=== PATIENT | female | born 2005 | race Caucasian/White ===

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

== ENCOUNTER → 2025-02-07 23:59 | Outpatient (BNV) | payer OTHER, SELFPAY ==
--- NOTE | 2025-02-09 09:54 | A.OFFVIS_ITS ---
Intake Visit Reasons: follow up Allergies No Known Allergies (No Known Allergies*) Allergy (Verified 08/23/22 01:34) HPI Comments Details: student coming needing verification of (test was quite positive!) but she is chatty and we did her orientation at the same time. states did home pegnancy test and it was positive - USN done 3 weeks ago. PCP [facility] (no pcp yet bc aged out of pediatrics) getting ob care there as well but disatisfied by their communication...she states she is high risk (bicornate? uterus it's heart shaped ) so suggested that she connect with [facility] - she is thinking about this. meanwhile she is very nauseous and [facility] anything [facility]. she will call them back again but we reviewed natural remedies in the meantime. discussed unisom but see insomnia issue below and also not recommending anything that her midwives are not aware of . she vomits a lot - the only thing she can keep down is strawberries, bananas and yogurt. PMH: pituitary tumor they are just watching this - it has not grown. moon is monitoring w/ MRI's anxiety/social anxiety/depression and anger issues (was on medis - doesn't know the name but nothing helped - she was 9-12 years old. she is unable to sleep - prior to - she doens't ever sleep - dad has same issue and brother. nothing works - tried melatonin, benadryl and other things benadryl made her drowsy but not sleep. she smokes cannabis every night (2 times a day) this helps w/ anxiety and sleep some. she has told her Test Desk Trouble Locator and was told it 'was ok' during - she is trying to cut down. G3 M3 P 0 EDC august No mental health diagnosis (no bipolar/kleber to explain sleep issue), sleep study was done not resulted. 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 Anxiety associated with depression Adolescent , incidental Social History Alcohol intake: never Smoked in Last 30 Days: No Use of substances other than those prescribed or required for medical reasons: Yes Substance Use Type: Marijuana Substance Use Type Other:: Eats edibles for sleep Substance Use Frequency: Occasionally Advance Directives: No Advance Directives Information Provided: Yes Patient : No Review of Systems Const Details: Counseling visit: All systems reviewed & are unremarkable except as noted in HPI and below Reports as per HPI Resp Reports as per HPI GI Reports as per HPI Musc Reports as per HPI Neuro Reports as per HPI Psych Reports as per HPI Physical Exam Const Other: mostly seems comfortable - slight anxiety appartent but not terrible General: cooperative, healthy appearing and no acute distress Nutritional Appearance: well nourished Orientation/consciousness: oriented to person Limitations: no limitations HEENT Other: wnl Eyes Other: wnl Chest Other: easy breathing Resp Effort & Inspection: normal respiratory effort and able to speak in complete sentences Skin Other: normal in appearance Neuro General: oriented to person Psych Other: see HPI Appearance: grossly normal and well kempt Mental Status: mental status grossly normal Speech and movement: Clear speech present Affect: normal affect Attitude: cooperative Thought process: Normal thought process present Thought content: Normal thought content present Insight: Good insight present (Psych) Judgement: Good judgement present (Psych) Assessment & Plan Assessment & Plan (1) Irregular menses: Code(s): N92.6 - Irregular menstruation, unspecified Category: Medical (2) Counseling and coordination of care: Code(s): Z71.89 - Other specified counseling Category: Medical (3) Adolescent , incidental: Code(s): Z33.1 - state, incidental Category: Medical (4) Anxiety associated with depression: Code(s): F41.8 - Other specified anxiety disorders Category: Medical (5) Insomnia disorder: Code(s): G47.00 - Insomnia, unspecified Category: Medical (6) Cannabis use with anxiety disorder: Code(s): F12.980 - Cannabis use, unspecified with anxiety disorder Category: Medical (7) Bicornate uterus complicating : Code(s): O34.00 - Maternal care for unspecified congenital malformation of uterus, unspecified trimester; Q51.3 - Bicornate uterus Category: Medical Plan coordinating care w/ her onsite counselor to help student get referrals - she currently is not interested in therapy but we are connecting her w/ texting support service and will monitor her well-being while a student here. she tried to call [facility] for care but didn't like their interveniton so will go to [facility] for care. counselor will help her w/ this - discussed w/ student again Orders: Orders AMB HCG Urine Test Today N92.6 - Irregular menstruation, unspecified, Z32.01 - Encounter for test, result positive Coding Level of Care Code New Pt Level 5 (06490) Diagnoses Irregular menses N92.6 Counseling and coordination of care Z71.89 Adolescent , incidental Z33.1 Anxiety associated with depression F41.8 Insomnia disorder G47.00 Cannabis use with anxiety disorder F12.980 Bicornate uterus complicating O34.00; Q51.3 Additional Codes CRAFFT Assessment Charge - Crafft: CRAFFT 09856 ([id number]) PHQ-9 - 16335 - PHQ-9 Billing: Yes ([id number]) MEGHAN-7 Assessment Billing - MEGHAN-7 Assessment Tool: MEGHAN-7 Assessment 72239 ([id number]) Time Spent (min) 60 Comment over 60 min counseling and coord care CRAFFT Screening Tool PART A: In the PAST 12 MONTHS, did you: Drink any alcohol (more than few sips)? (Do not count sips of alcohol taken during family or holiness events.): No Smoke any marijuana or hashish?: Yes Use anything else to get high? (includes illegal drugs, over the counter/prescription drugs, or things that you sniff/perez?): No PART B: If answered YES to ANY above: Have you ever been in a CAR driven by someone (including yourself) who was high or had been using alcohol or drugs?: No Do you ever use alcohol or drugs to RELAX, feel better about yourself, or fit in?: No Do you ever use alcohol or drugs while you are by yourself, or ALONE?: No Do you ever FORGET things while using alcohol or drugs?: No Do your FAMILY or FRIENDS ever tell you that you should cut down on your drinking or drug use?: No Have you ever gotten into TROUBLE while you were using alcohol or drugs?: No details: helps her to sleep CRAFFT Assessment Charge Crafft: CRAFFT 49359 PHQ-9 Over the last 2 weeks, how often have you been bothered by any of the following problems? 1. Little interest or pleasure in doing things: more than half the days 2. Feeling down, depressed, or hopeless: more than half the days 3. Trouble falling or staying asleep, or sleeping too much: nearly every day 4. Feeling tired or having little energy: nearly every day 5. Poor appetite or overeating: nearly every day 6. Feeling bad about yourself - or that you are a failure or have let yourself or your family down: more than half the days 7. Trouble concentrating on things, such as reading the newspaper or watching television: more than half the days 8. Moving or speaking so slowly that other people could have noticed. Or the opposite - being so fidgety or restless that you have been moving around a lot more than usual: more than half the days 9. Thoughts that you would be better off or of hurting yourself in some way: not at all Total score: 19 Depression Screening Interpretation: Positive Depression Screening Done: Yes 92604 - PHQ-9 Billing: Yes Source: Developed by Drs. Robby Del Castillo, Sissy Long, Poncho Hyman and colleagues, with an educational chrissy from [employer]. MEGHAN-7 AMB Questionnaire MEGHAN-7 Feeling nervous, anxious, or on edge: 2 = More than half the days Not being able to stop or control worryin = Nearly every day Worrying too much about different things: 3 = Nearly every day Trouble relaxin = Nearly every day Being so restless that it is hard to sit still: 2 = More than half the days Becoming easily annoyed or irritable: 3 = Nearly every day Feeling afraid as if something awful might happen: 3 = Nearly every day Total MEGHAN-7 score (0-4 normal; 5-9 mild; 10-14 moderate; 15-21 severe): 19 Source: Developed by Drs. Robby Del Castillo, Poncho Lambert and colleagues, with an educational chrissy from [employer]. MEGHAN-7 Assessment Billing MEGHAN-7 Assessment Tool: MEGHAN-7 Assessment 11478
== END ==
PROVIDERS: PCP Student in an Organized Health Care Education/Training Program; Visit Provider Nurse Practitioner Family
DX: N92.6 Irregular menstruation, unspecified (principal); Z71.89 Other specified counseling; Z33.1 Pregnant state, incidental; F41.8 Other specified anxiety disorders; G47.00 Insomnia, unspecified; F12.980 Cannabis use, unspecified with anxiety disorder; O34.00 Maternal care for unspecified congenital malformation of uterus, unspecified trimester; Q51.3 Bicornate uterus
CPT/HCPCS: 96127; 96160; 99205

== ENCOUNTER 2025-02-14 15:38 | Emergency (ER) | payer OTHER, SELFPAY ==
--- OUTSIDE RECORDS SUMMARY | 2025-02-13 14:50 | XMS_ITS | Continuity of Care Document ---
Author Organization [facility] ter Address [address] [place] [address]- Care Team Providers Care Biztalk Software Developer Name Role Phone Not on Staff, PCP Primary Care Physician Unavail able Encounter [facility] Date(s): 02/13/25 - 02/13/25 [facility] [address] [place] [id number] Encounter Diagnosis Complete spontaneous complicated by genital tract and pelvic infection (Final) - 02/13/25 Discharge Disposition: A-D/C Home Attending Physician: Delmy Mccord MD Admitting Physician: Delmy Mccord MD Referring Physician: Not on Staff, Referring MD Encounter Type: Disch ES Allergies, Adverse Reactions, Alerts No Known Allergies Immunizations Given and Recorded Vaccine Date Status Refusal Reason Hepatitis B Vaccine (old term) 05 Given Medications Fluoxetine By Mouth, 0 Refills, Maintenance, 08/09/22 3:23:00 PM EST, Partial fill upon patient request if the prescription is for a schedule II opioid drug. Start Date: 08/09/22 Status: Ordered Repeat number: 1 Melatonin Daily at bedtime, 0 Refills, Maintenance, 08/09/22 3:23:00 PM EST, Partial fill upon patient requestif the prescription is for a schedule II opioid drug. Start Date: 08/09/22 Status: Ordered Repeat number: 1 Omeprazole By Mouth, Daily, 0 Refills, Maintenance, 08/09/22 3:23:00 PM EST, Partial fill upon patient request if the prescription is for a schedule II opioid drug. Start Date: 08/09/22 Status: Ordered Repeat number: 1 Results Radiology Reports * Exam Date Time Procedure Performing Provider Status 02/13/25 1:21 PM US Pelvic Doppler Comp Au th (Verified) Notes: (US Pelvic Doppler Comp) Reason For Exam: Pelvic Pain;Other: RESULT: US Pelvic Doppler Comp US Transabd 1st Trimester Only, US Uterus Transvaginal, US Pelvic Doppler Comp Refer to EMR; Hx of Present Illness: Pt states she is 10 weeks and started experiencing vaginal bleeding this AM. Pt states it is heavy for me. Pt states she has had abd cramping x 2 weeks. Pt is in process of being transferred to but currently not seen. Denies dizziness; Reason: Other:; Pelvic Pain; Clinical Question(s): Other:; Retained Products of Conception; Order Comment: US Pelv. Beta hCG 12,511 The 3, para 0. COMPARISON: Negative 3:00 AM, same day (ER only) TECHNIQUE: Transabdominal and transvaginal pelvic ultrasound with grayscale, color Doppler, and spectral Doppler analysis. FINDINGS: Last menstrual period (LMP): 09/15/2024 per patient. UTERUS AND GESTATIONAL STRUCTURES: A gestational sac is present measuring 2.5 x 2.2 x 4.3 cm (mean diameter 3.0 cm, 7 weeks 6 days). There appears to be an additional amnion within the gestational sac. No well-defined yolk sac is seen. Along the amniotic membrane, and protruding inward, there is a nonspecific 1.8 x 3.8 mm soft tissue structure (cine image 621 of 1665). Uterus: 8.6 x 6.0 x 7.5 cm, volume 206 cc. No masses. No abnormalities of the cervix. RIGHT OVARY: Size: 2.8 x 2.6 x 1.8 cm, volume 6.6 cc. Morphology: Normal echotexture. No pathologic cysts or mass. Normal arterial and venous waveforms. LEFT OVARY: Size: 3.6 x 1.5 x 1.7 cm, volume of 4.7 cc. Morphology: Normal echotexture. No pathologic cysts or mass. Normal arterial and venous waveforms. FREE FLUID: None. IMPRESSION: Within the uterine cavity, there is a gestational sac with mean diameter of 3.0 cm with an amnionicmembrane, but no clearly recognizable yolk sac or pole. There is a nonspecific soft tissue nodular structure along the margin of the amnion. The findings are consistent with intrauterine products of conception, but do not appear normal, and are suspicious for failure. Both ovaries are normal, with no evidence of torsion, and no adnexal mass was seen. WSN: [id number] Ordering Physician: Delmy Mccord Dictated By: Atilio Brown MD Dictated Date/Time: 02/13/25 1:40 pm Reviewed By: Atilio Brown MD Signed By: Atilio Brown MD Signed Date/Time: 02/13/25 1:40 pm Transcribed By: GORAN Transcribed Date/Time: 02/13/25 1:39 pm * Exam Date Time Procedure Performing Provider Status 02/13/25 1:21 PM US Uterus Transvaginal Auth (Verified) Notes: (US Uterus Transvaginal) Reason For Exam: Pelvic Pain;Other: RESULT: US Uterus Transvaginal US Transabd 1st Trimester Only, US Uterus Transvaginal, US Pelvic Doppler Comp Refer to EMR; Hx of Present Illness: Pt states she is 10 weeks and started experiencing vaginal bleeding this AM. Pt states it is heavy for me. Pt states she has had abd cramping x 2 weeks. Pt is in process of being transferred to but currently not seen. Denies dizziness; Reason: Other:; Pelvic Pain; Clinical Question(s): Other:; Retained Products of Conception; Order Comment: US Pelv. Beta hCG 12,511 The 3, para 0. COMPARISON: Negative 3:00 AM, same day (ER only) TECHNIQUE: Transabdominal and transvaginal pelvic ultrasound with grayscale, color Doppler, and spectral Doppler analysis. FINDINGS: Last menstrual period (LMP): 09/15/2024 per patient. UTERUS AND GESTATIONAL STRUCTURES: A gestational sac is present measuring 2.5 x 2.2 x 4.3 cm (mean diameter 3.0 cm, 7 weeks 6 days). There appears to be an additional amnion within the gestational sac. No well-defined yolk sac is seen. Along the amniotic membrane, and protruding inward, there is a nonspecific 1.8 x 3.8 mm soft tissue structure (cine image 621 of 1667). Uterus: 8.6 x 6.0 x 7.5 cm, volume 206 cc. No masses. No abnormalities of the cervix. RIGHT OVARY: Size: 2.8 x 2.6 x 1.8 cm, volume 6.6 cc. Morphology: Normal echotexture. No pathologic cysts or mass. Normal arterial and venous waveforms. LEFT OVARY: Size: 3.6 x 1.5 x 1.7 cm, volume of 4.7 cc. Morphology: Normal echotexture. No pathologic cysts or mass. Normal arterial and venous waveforms. FREE FLUID: None. IMPRESSION: Within the uterine cavity, there is a gestational sac with mean diameter of 3.0 cm with an amnionicmembrane, but no clearly recognizable yolk sac or pole. There is a nonspecific soft tissue nodular structure along the margin of the amnion. The findings are consistent with intrauterine products of conception, but do not appear normal, and are suspicious for failure. Both ovaries are normal, with no evidence of torsion, and no adnexal mass was seen. WSN: [id number] Ordering Physician: Delmy Mccord Dictated By: Atilio Brown MD Dictated Date/Time: 02/13/25 1:40 pm Reviewed By: Atilio Brown MD Signed By: Atilio Brown MD Signed Date/Time: 02/13/25 1:40 pm Transcribed By: GORAN Transcribed Date/Time: 02/13/25 1:39 pm * Exam Date Time Procedure Performing Provider Status 02/13/25 1:21 PM US Transabd 1st Trimester On ly Modified Notes: (US Transabd 1st Trimester Only) Reason For Exam: Pelvic Pain;Other: RESULT: US Transabd 1st Trimester Only US Transabd 1st Trimester Only, US Uterus Transvaginal, US Pelvic Doppler Comp Refer to EMR; Hx of Present Illness: Pt states she is 10 weeks and started experiencing vaginal bleeding this AM. Pt states it is heavy for me. Pt states she has had abd cramping x 2 weeks. Pt is in process of being transferred to but currently not seen. Denies dizziness; Reason: Other:; Pelvic Pain; Clinical Question(s): Other:; Retained Products of Conception; Order Comment: US Pelv. Beta hCG 12,511 The 3, para 0. COMPARISON: Negative 3:00 AM, same day (ER only) TECHNIQUE: Transabdominal and transvaginal pelvic ultrasound with grayscale, color Doppler, and spectral Doppler analysis. FINDINGS: Last menstrual period (LMP): 09/15/2024 per patient. UTERUS AND GESTATIONAL STRUCTURES: A gestational sac is present measuring 2.5 x 2.2 x 4.3 cm (mean diameter 3.0 cm, 7 weeks 6 days). There appears to be an additional amnion within the gestational sac. No well-defined yolk sac is seen. Along the amniotic membrane, and protruding inward, there is a nonspecific 1.8 x 3.8 mm soft tissue structure (cine image 621 of 1665). Uterus: 8.6 x 6.0 x 7.5 cm, volume 206 cc. No masses. No abnormalities of the cervix. RIGHT OVARY: Size: 2.8 x 2.6 x 1.8 cm, volume 6.6 cc. Morphology: Normal echotexture. No pathologic cysts or mass. Normal arterial and venous waveforms. LEFT OVARY: Size: 3.6 x 1.5 x 1.7 cm, volume of 4.7 cc. Morphology: Normal echotexture. No pathologic cysts or mass. Normal arterial and venous waveforms. FREE FLUID: None. IMPRESSION: Within the uterine cavity, there is a gestational sac with mean diameter of 3.0 cm with an amnionicmembrane, but no clearly recognizable yolk sac or pole. There is a nonspecific soft tissue nodular structure along the margin of the amnion. The findings are consistent with intrauterine products of conception, but do not appear normal, and are suspicious for failure. Both ovaries are normal, with no evidence of torsion, and no adnexal mass was seen. WSN: [id number] Ordering Physician: Delmy Mccord Dictated By: Atilio Brown MD Dictated Date/Time: 02/13/25 1:40 pm Reviewed By: Atilio Brown MD Signed By: Atilio Brown MD Signed Date/Time: 02/13/25 1:40 pm Transcribed By: GORAN Transcribed Date/Time: 02/13/25 1:39 pm Note * Delmy Mccord MD: PERFORM Event Display: Patient Education Leaflets Authored Date: [id number] Completed Spontaneous Miscarriage ?? [id number] Completed Spontaneous Miscarriage Completed miscarriage means that the embryo or fetus, placenta, and other tissues are passed out ofthe uterus with bleeding. It???s important to know that you did not cause this to happen. Miscarriage is very common. About 1or 2 out of every [address] Miscarriage usually takes place in the first 10 weeks after conception. It may happen before you know you are . It may happen for many reasons. Often the cause is not known. Miscarriage is not your fault. It didn???t happen because you did something wrong. Sex or exercise does not cause a miscarriage. These activities are safe unless your healthcare provider tells you tostop. Even a minor fall won???t cause a miscarriage. It appears that your miscarriage is complete. This means that all tissue from the should have passed out of your uterus. If some of the tissue??is still in your uterus, you will have more cramping and bleeding.??The bleeding can be light spotting or like a period. It's usually not heavy. You may also pass some tissue. After you have recovered, you should be able to get again. Before trying, talk with your healthcare provider. Home care After you go home: ??? You may not feel well for a few days. Your body is going through changes. You will have mood swings. ??? You may have some cramping and bleeding, but it shouldn???t be severe. ??? When you are ready, you can start to go back to your normal routine. Until the bleeding stops fully, to prevent infection: ??? Don???t have sex until your healthcare provider says it???s OK. ??? Don???t use tampons. Use pads instead. ??? Don???t use douche. Having a miscarriage is stressful and upsetting. It's natural to feel sadness or grief. Partners grieve, too. It may help to talk about your feelings with family, friends, a counselor, or customer support advisor. ?? Follow-up care See your healthcare provider in 1 to 2 weeks for a checkup. If you had an ultrasound, a radiologistwill look at it. You will be told of any results that may affect your care. If you have cramping and bleeding for more than a few days, call your healthcare provider. You willneed another exam. Your provider might need to take out the tissue with surgery. This is to preventinfection in your uterus. Or you may be given medicine to take at home. This will help the rest of the tissue come out of your body. ?? Call 911 Call 911 if you have any of these: ??? Severe pain and very heavy bleeding ??? Severe lightheadedness, passing out, or fainting ??? Fast heart rate ??? Trouble breathing ??? Confusion ??? Trouble waking up ?? When to get medical care Call your healthcare provider right away??if you have any of these: ??? Heavy bleeding that soaks 1pad an hour over 3 hours ??? Bleeding that doesn???t stop after 10 days ??? Fluid from your vagina that smells bad ??? Fever of 100.4??F (38??C) or higher ??? Pain in your lower belly (abdomen) that gets worse ??? Weakness or dizziness ?? Last Reviewed Date: 2024 00:00:00 ?? [id number] [employer]. All rights reserved. This information is not intended as a substitute for professional medical care. Always follow your healthcare professional's instructions. ?? Patient Care team information Care Team Personnel Name: Not on Staff, PCP Position: [facility] Physician (General Medicine) Member Role: PCP Care Team Related Persons Name: KERLINE BONNER Name: HENRIK DALTON Insurance Providers Guarantor name: [facility] [employer] Plan Information #: 1 Payer: [employer] Payer Identifier: LIN Member Number: [id number] Group Number: [id number] Subscriber Identifier: [id number] Relationship to Subscriber: self Coverage Type: NA Coverage Verification Date: Telecom: NA Address:
[2025-02-14] VITALS (7 sets, daily range): BP systolic 101–125; BP diastolic 62–75; PULSE 88–103; RESP 14–20; TEMP 36.6–37.1; O2SAT 97–99; BMI 34.7
--- NOTE | ~2025-02-14 | US_ITS ---
CLINICAL HISTORY: , vag bleeding, ectopic? US OB 1st trimester transabdominal and transvaginal Comparison: None provided Findings: Transabdominal imaging performed for overall anatomy. Transvaginal imaging performed for additional detail. The uterus measures 8.7 cm in length on transabdominal imaging and 7.7 cm in length on transvaginal imaging. No intrauterine gestational sac, yolk sac, pole, or heart tones are detected on this examination. The endometrium appears thickened, measuring 23.8 mm in thickness on transvaginal imaging. There is flow at the endometrium on color Doppler imaging. There is some heterogeneity of the endometrium. The right ovary measures 2.8 x 2.5 x 1.7 cm on transvaginal imaging and the left ovary measures 3.3 x 1.0 x 1.6 cm on transvaginal imaging. Flow present at the right ovary on color Doppler imaging. Limited color Doppler images of the left ovary were a 1.5 cm simple appearing anechoic cyst with posterior acoustic enhancement is present at the right adnexa. Possible trace free fluid at the cul-de-sac. IMPRESSION: 1. No intrauterine gestational sac, pole, or heart tones are detected on this examination. There is heterogeneous thickening of the endometrium up to 23.8 mm on transvaginal imaging with flow at the endometrium on color Doppler imaging. These findings are nonspecific and may be related to retained products of conception or gestational trophoblastic disease. Less likely consider an endometrial tumor or polyp given the patient's age. Recommend obstetric consultation. This document has been electronically signed by: Keaton Reyes MD on 02/14/2025 21:14:49
--- NOTE | 2025-02-14 15:54 | ED_ITS ---
HPI - General Adult General Chief complaint: Vaginal Bleeding Stated complaint: vaginal bleeding,clots ,miscarriage 02/13 Time Seen by Provider: 02/14/25 18:17 Source: patient Limitations: no limitations History of Present Illness ED Provider: Stacy Hall PA-C HPI narrative: 19-year-old female presents with vaginal bleeding. Patient states as of yesterday she should be approximately 10 weeks . The patient's bleeding began yesterday, she was soaking through a pad every 15 minutes, passing large clots at times. Patient states she was seen at [facility], and they told her ?you are not really ?. Patient states the bleeding has subsided to some degree, she is followed by fibreglass laminator at [facility]. Associated dizziness, nausea and abdominal cramping. Related Data Previous Rx's ?Medication ?Instructions ?Recorded ketorolac 10 mg tablet 10 mg PO Q6H PRN pain #20 ta bs 02/14/25 methocarbamol 750 mg tablet 1,500 mg (2 x 750 mg) PO B EDTIME 02/14/25 PRN pain, moderate #7 tabs Allergies Allergy/AdvReac Type Severity Reaction Status Date / Time No Known Allergies (No Known Allergy Verified 02/14/25 15:57 Allergies*) Review of Systems 2 Review of Systems: Yes all other systems are reviewed and are negative Constitutional: Constitutional: Denies fatigue and Denies fever(s) Cardiovascular: Cardiovascular: Denies chest pain and Denies dyspnea Respiratory: Respiratory: Denies dyspnea Gastrointestinal: Gastrointestinal: Reports GI cramping and Reports nausea Genitourinary: Comments: Heavy vaginal bleeding Musculoskeletal: Musculoskeletal: Reports back pain Endocrine: Endocrine: Denies fatigue PMFSH Past Medical History Attestation statement: The following information was validated with the patient. 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 Insomnia disorder Anxiety associated with depression Adolescent , incidental Social History Social History Alcohol intake: never Substance Use Type: Marijuana Physical Exam ED Vital Signs: Vital Signs - 24 hr 02/14/25 15:55 02/14/25 17:11 02/14/25 19:15 Temperature 98.0 F 97.8 F 98.4 F Pulse Rate 103 H 99 89 Respiratory Rate 18 20 14 Blood Pressure 119/75 109/64 106/70 Pulse Oximetry 97 97 99 Oxygen Delivery Method Room Air Room Air Room Air 02/14/25 20:34 02/14/25 20:39 02/14/25 22:03 Temperature 98.7 F Pulse Rate 103 H 88 92 Respiratory Rate 18 18 14 Blood Pressure 121/73 125/64 101/62 Pulse Oximetry 99 99 99 Oxygen Delivery Method Room Air Room Air Room Air BMI result Body Mass Index 34.7 Const Other: Alert Orientation/consciousness: patient oriented x3 Resp Effort & Inspection: normal respiratory effort Cardio Other: Normal peripheral perfusion GI Other: Abdomen is soft, nontender no guarding Other: Large clot burden noted in vaginal canal, once it was removed, there was no active bleeding per os Skin Other: Warm dry no rash Neuro General: patient oriented x3, gait normal, no focal motor deficits and CN's II- XI intact bilaterally Psych Other: Cooperative Course Course Course Narrative: This is a rapid medical exam performed by Yovanny Mckeon NP: Additional HPI, ROS, PE not included below will be deferred to primary provider. Patient is a 19-year-old female with history of irregular menses, cannabis use disorder, anxiety and depression, bicornate uterus presenting to the ED with complaint of vaginal bleeding since 6am yesterday. Seen at [facility], told she was having a miscarriage. After going home, bleeding worsened. Went through 4 large pads within an hour. Estimated 10 wks gestation. Family states she passed a blood clot larger than one dollar. Dizziness, nausea, vomiting, lower back pain, abdominal cramping. Upon review of [facility] records, H&H yesterday was 13.6/42.0 Plan: labs, UA Consultations Consultation #1: Moraima..... Dr. Doyle...... She states given the patient is stable, there were not be cause for emergent transfer, they will reach out to the patient tomorrow morning to schedule an appointment to discuss the need for D and C Time: 22:06 Medications Administered Discontinued Medications Generic Name Dose Route Start Last Admin Trade Name Freq PRN Reason Stop Dose Admin Acetaminophen 975 mg 02/14/25 15:57 02/14/25 16:03 Acetaminophen 325 Mg Tablet PO 02/14/25 15:58 975 mg ONCE ONE Administration Ketorolac Tromethamine 15 mg 02/14/25 19:12 02/14/25 20:35 Ketorolac Tromethamine 15 Mg/Ml Vial IM 02/14/25 19:13 15 mg ONCE ONE Administration Methocarbamol 1,500 mg 02/14/25 22:32 02/14/25 23:00 Methocarbamol 750 Mg Tablet PO 02/14/25 22:33 1,500 mg ONCE ONE Administration Medical Decision Making Medical Decision Making MDM Narrative: 19-year-old female presents with vaginal bleeding. Patient states as of yesterday she should be approximately 10 weeks . The patient's bleeding began yesterday, she was soaking through a pad every 15 minutes, passing large clots at times. Patient states she was seen at [facility], and they told her ?you are not really ?. Patient states the bleeding has subsided to some degree, she is followed by fibreglass laminator at [facility]. Associated dizziness, nausea and abdominal cramping. Problem: Early History: Per patient I have considered the following differential diagnoses: Ectopic, threatened , retained products of conception Plan: In addition to screening labs, type and screen with Rh factor we will be obtained, transvaginal ultrasound is in process. I will attempt to obtain records from [facility]. I will then in turn reach out to her provider at [facility], she may require transfer. I am most concerned for ectopic at this point, she was told at [facility] that she is not truly , I am not sure how to decipher that. Her for CBC is complete, I am repeating her blood counts I have independently reviewed the following tests: Labs: Initial H&H 13.3 and 40.6, repeat 12.5 and 38, no leukocytosis, no electrolyte abnormality, serum quant 8577 Transvaginal ultrasound:IMPRESSION: 1. No intrauterine gestational sac, pole, or heart tones are detected on this examination. There is heterogeneous thickening of the endometrium up to 23.8 mm on transvaginal imaging with flow at the endometrium on color Doppler imaging. These findings are nonspecific and may be related to retained products of conception or gestational trophoblastic disease. Less likely consider an endometrial tumor or polyp given the patient's age. Recommend obstetric consultation. Lab Data 02/14/25 19:25 07/28/25 16:16 Labs: Lab Results 02/14/25 02/14/25 Range/Units 16:16 19:25 WBC 10.7 (4.8-10.8) X10*3/uL RBC 4.93 (4.20-5.50) X10*6/uL Hgb 13.3 12.5 (12.0-16.0) g/dl Hct 40.6 38.0 (37.0-47.0) % MCV 82.4 (80.0-98.0) fL MCH 27.0 (27.0-33.0) pg MCHC 32.8 (31.0-35.0) g/dl RDW 13.8 (11.0-16.0) % Plt Count 448 H (160-400) X10*3/uL MPV 10.1 (9.4-12.3) fL Immature Gran % (Auto) 0.2 (0.0-0.4) % Neut % (Auto) 75.1 H (45-73) % Lymph % (Auto) 19.7 L (20-40) % [place] % (Auto) 4.1 (2-11) % Eos % (Auto) 0.6 (0-4) % Baso % (Auto) 0.3 (0-2) % Lymph # (Auto) 2.1 (1.2-4.9) X10*3/uL [place] # (Auto) 0.4 (0.1-1.2) X10*3/uL Eos # (Auto) 0.1 (0.0-0.4) X10*3/uL Baso # (Auto) 0.0 (0.0-0.2) X10*3/uL Abs Immat Gran (auto) 0.02 (0.00-0.03) X10*3/uL Absolute Neuts (auto) 8.0 (2.0-8.3) x10*3/uL Absolute Nucleated RBC 0.000 (0.0-0.012) X10*3/uL Nucleated RBC % (auto) 0.0 (0.0-0.2) /100WBC PT 12.2 (10.9-12.4) SEC INR 1.1 (0.9-1.1) Sodium 140 (135-145) mmol/L Potassium 4.1 (3.3-5.1) mmol/L Chloride 108 (96-108) mmol/L Carbon Dioxide 23 (22-29) mmol/L Anion Gap 13 (12-20) BUN 7 L (9-16) mg/dL Creatinine 0.59 (0.5-1.4) mg/dL Estim Creat Clear Calc 168.1 Estimated GFR > 60 Random Glucose 108 (60-115) mg/dL Calcium 9.3 (8.4-10.2) mg/dL Total Bilirubin 0.4 (0.0-1.0) mg/dL AST 14 (5-31) U/L ALT 11 (0-31) U/L Alkaline Phosphatase 77 (39-117) U/L Total Protein 6.9 (6.5-8.0) g/dL Albumin 4.1 (3.5-5.0) g/dL Beta HCG, Quant 8577 mIU/mL Blood Type A Positive Antibody Screen NEGATIVE Discharge Plan Discharge Clinical Impression: Retained products of conception after miscarriage Patient Disposition: Home, Self-Care Additional Instructions: You were found to have retained products of conception, this is essentially an incomplete miscarriage. Your fibreglass laminator from [facility] will be contacting you tomorrow, you can expect their call, make sure you speak with them. They will arrange for you to be seen in the office, you will have further discussion about the next steps in this process. Return precaution for onset of heavy vaginal bleeding that will not stop, if this occurs, seek medical attention. Take the ketorolac as directed, take it with food, this will help with the bleeding and pain. Use the methocarbamol as needed for further discomfort this is a muscle relaxant. It will cause drowsiness, do not drive or operate machinery while taking this medication. Prescriptions: New ketorolac 10 mg tablet 10 mg PO Q6H PRN (Reason: pain) Qty: 20 0RF Rx Instructions: maximum total duration of 5 days from all oral, intranasal, or parenteral formulations. The patient received an intramuscular dose of Toradol here in the emergency room. methocarbamol 750 mg tablet 1,500 mg PO BEDTIME PRN (Reason: pain, moderate) Qty: 7 0RF Interventions: ED Discharge Assessment Last Done: 02/14/25 23:08 Discharge Date/Time: 02/14/25 23:08 Print Language: Georgian
[2025-02-14 16:21] LABS: MANUAL DIFF FLAG NO
[2025-02-14 16:22] LABS: Hematocrit 40.6 % (37.0-47.0); Hemoglobin 13.3 g/dl (12.0-16.0); Imm Gran Abs Auto 0.02 X10*3/uL (0.00-0.03); Imm Gran Pct Auto 0.2 % (0.0-0.4); Lymphocytes Absolute Auto 2.1 X10*3/uL (1.2-4.9); Mean Corpuscular HGB Conc 32.8 g/dl (31.0-35.0); Mean Corpuscular Hemoglobin 27.0 pg (27.0-33.0); Mean Corpuscular Volume 82.4 fL (80.0-98.0); NRBC Abs Auto 0.000 X10*3/uL (0.0-0.012); NRBC Pct Auto 0.0 /100WBC (0.0-0.2); Platelet Count 448 X10*3/uL (160-400); Red Blood Count 4.93 X10*6/uL (4.20-5.50); White Blood Count 10.7 X10*3/uL (4.8-10.8)
[2025-02-14 16:28] LABS: INTERNATIONAL NORM RATIO 1.1 (0.9-1.1); Prothrombin Time 12.2 SEC (10.9-12.4)
--- OUTSIDE RECORDS SUMMARY | 2025-02-14 16:34 | XMS_ITS ---
Author Name [facility] Organization Unknown Care Team Organization Name Specialty Phone Email Start Date End Da te [facility] TITO HENDRICKS [facility] [email or web address] 03/27/[address] [facility] Jasmin Contreras Primary Care 05/28/2022 4
--- OUTSIDE RECORDS SUMMARY | 2025-02-14 16:34 | XMS_ITS | Encounter Summary ---
Author Organization [facility] Address [address] [place] [address] Care Team Providers Care Set Staff Fitter Name Role Phone Cheikh Choudhary MD Primary Care Pr ovider Reason for Visit * Reason Onset Date Comments Vaginal Bleeding - 02/14/2025 Encounter Details Date Type Department Care Team ([facility] Contact Info) Description 02/14/2025 Telephone Obstetrics and Gynecology - [address] [phone] [address] Carranza [address] [address] Vaginal Bleeding - Social History Tobacco Use Types Packs/Day Years Used Date Smoking Tobacco: Never Smokeless Tobacco: Never Alcohol Use Standard Drinks/Week Comments No 0 (1 standard drink = 0.6 oz pur e alcohol) Estimated Date of Delivery Comme nts Yes 09/11/2025 Based on Ultraso und Sex and Gender Information Value Date Recorded Sex Assigned at Not on file Legal Sex Female 2:16 PM EST Gender Identity Not on file Sexual Orientation Not on file documented as of this encounter Progress Notes * Loraine Mendoza RN - 02/14/2025 3:14 PM EDT Spoke with patient Pt went to [facility] 02/13/25 for VB and cramping.at home today and VB heavy filling 3 adult diapers in an hour and passed a large clot and has severe cramping and dizziness. Pt advised to return to [facility] or [facility] ED for treatment. Pt understands and agrees with plan of care. * Ros Rosenthal - 02/14/2025 2:53 PM EDT Pt calling, was seen at [facility] er last night and it was confirmed that she is miscarrying.Pt states she is actively bleeding very heavy and cramping. had an huge blood clot. Psl advise documented in this encounter Plan of Treatment Not on file documented as of this encounter Visit Diagnoses Not on filedocumented in this encounter Care Teams Set Staff Fitter Relationship Specialty Start Date End Date Cheikh Choudhary MD [address] [place] [id number] PCP - General 01/07/23 documented as of this encounter
[2025-02-14 16:36] LABS: Alanine Aminotransferase 11 U/L (0-31); Albumin Level 4.1 g/dL (3.5-5.0); Alkaline Phosphatase 77 U/L (39-117); Anion Gap 13 (12-20); Aspartate Amino Transferase 14 U/L (5-31); Blood Urea Nitrogen 7 mg/dL (9-16); Calcium 9.3 mg/dL (8.4-10.2); Carbon Dioxide 23 mmol/L (22-29); Chloride 108 mmol/L (96-108); Creatinine Clr Calc Pharmacy 168.1; Estimated Glomerular Filt Rate > 60; Potassium 4.1 mmol/L (3.3-5.1); Sodium 140 mmol/L (135-145); Total Protein 6.9 g/dL (6.5-8.0)
--- NOTE | 2025-02-14 18:59 | PC.NURSE ---
Patient given new pad, underwear and bedding for vaginal bleeding
[2025-02-14 19:29] LABS: Hematocrit 38.0 % (37.0-47.0); Hemoglobin 12.5 g/dl (12.0-16.0)
--- NOTE | 2025-02-14 20:34 | PC.NURSE ---
PA at bedside doinfg vaginal exam, suctioning blood clots, patient singing, tolerating well, a+ox3, mom and sister at bedside
== END 2025-02-14 23:08 | disposition home or self-care (01) ==
PROVIDERS: Physician Assistant Medical; Registered Nurse Emergency; Emergency Provider Emergency Medicine Emergency Medical Services
DX: O03.4 Incomplete spontaneous abortion without complication (principal)
CPT/HCPCS: 36415; 76801; 80053; 84702; 85014; 85018; 85025; 85610; 86850; 86900; 86901; 96372; 99284; J1885

== ENCOUNTER → 2025-02-14 19:06 | Outpatient (BNV) | payer OTHER, SELFPAY | PROVIDERS: Emergency Provider Emergency Medicine Emergency Medical Services; Visit Provider Radiology Diagnostic Radiology | DX: N93.9 Abnormal uterine and vaginal bleeding, unspecified (principal) | CPT/HCPCS: 76801; 76817 ==

== ENCOUNTER 2025-03-25 13:14 | Emergency (ER) | payer OTHER, SELFPAY ==
--- NOTE | ~2025-03-25 | US_ITS ---
EXAMINATION: US PELVIS CLINICAL INFORMATION: Cramping, bleeding, miscarriage 2 months ago. COMPARISON: February 14, 2025 TECHNIQUE: Ultrasound of the pelvis is performed using both transabdominal and transvaginal transducers along with Doppler. Transvaginal imaging is performed due to inadequate visualization transabdominally. FINDINGS: Uterus: The uterus is anteversion flexion and measures 7 x 3 x 4 cm. Volume: 51 cc. The double wall endometrial thickness is 7 mm. there is a 0.9 cm hypoechoic lesion in the anterior upper body of the uterus adjacent to the endometrium no focal calcification. Adnexa: The ovaries are identified with flow on color Doppler interrogation.. No free fluid in the cul-de-sac. Right ovary measures 3 x 2 x 2 cm. Volume: 8.4 cc. There is a 1.5 cm anechoic structure without septations or internal echoes, likely dominant follicle. Left ovary measures 4 x 2 x 2 cm. Volume: 9 cc. No solid or cystic lesion. US/US pelvic and transvaginal IMPRESSION: No retained products of conception. Endometrial stripe, 7 mm. 9 mm subserosal uterine fibroid. No ovarian torsion. Electronically signed by: Benson Everett MD 03/25/2025 03:32 PM EDT
[2025-03-25 13:36] VITALS: BP 124/65; PULSE 97; RESP 18; TEMP 36.7; O2SAT 99; BMI 34.6
--- NOTE | 2025-03-25 13:36 | ED_ITS ---
HPI - General Adult General Chief complaint: Vaginal Bleeding Stated complaint: cramping and vaginal bleeding Time Seen by Provider: 03/25/25 16:40 Source: patient and old records reviewed Mode of arrival: ambulatory Limitations: no limitations History of Present Illness ED Provider: CLARENCE LANDRUM narrative: 20 yo female with PMH of anxiety and depression, bicornuate uterus who had miscarriage around 10 weeks gestation back in January she states she was seen here on 02/14 and DC home - she completed miscarriage at home. . She notes she has felt poor for a while but more weak recently with fatigue. She started to bleed with large clots and using adult diaper x 4 per day over the past week. She came in due to worsening pain and bleeding. She is not on any OCPs. She feels tired and winded. MD complaint: vag bleeding/pain Onset (ago): week(s) (1) Location: pelvis Radiation: back Severity: moderate Quality: other (cramping) Pain Consistency: intermittent Relieving factors: none Exacerbating factors: movement Associated symptoms: shortness of breath and weakness Treatments prior to arrival: none Related Data Previous Rx's ?Medication ?Instructions ?Recorded ketorolac 10 mg tablet 10 mg PO Q6H PRN pain #20 ta bs 02/14/25 methocarbamol 750 mg tablet 1,500 mg (2 x 750 mg) PO B EDTIME 02/14/25 PRN pain, moderate #7 tabs ferrous sulfate 325 mg (65 mg 325 mg PO DAILY #30 tabs 03/25/25 iron) tablet ibuprofen 600 mg tablet 600 mg PO Q6H PRN pain #30 t abs 03/25/25 ondansetron 4 mg disintegrating 4 mg PO Q8H PRN nausea and 03/25/25 tablet vomiting #20 tabs Allergies Allergy/AdvReac Type Severity Reaction Status Date / Time No Known Allergies (No Known Allergy Verified 03/25/25 13:41 Allergies*) Review of Systems 2 Review of Systems: Constitutional : No Fever, No Chills ENT/Mouth : No sore throat, No Rhinorrhea Eyes: No Eye Pain, No Redness Cardiovascular : No Chest Pain, No SOB Respiratory : No Cough, No Sputum, No Wheezing Gastrointestinal : positive Nausea, No Vomiting, No Diarrhea, positive abdominal pain, Genitourinary : positive irregular bleeding, No Dysuria, No Urinary Frequency, positive pelvic pain Musculoskeletal : No Myalgias Skin : No rash Neuro : pos Weakness, No Headache All other systems reviewed and are negative [facility] Past Medical History Attestation statement: The following information was validated with the patient. 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 Insomnia disorder Anxiety associated with depression Adolescent , incidental Social History Social History Alcohol intake: never Smoked in Last 30 Days: No Use of substances other than those prescribed or required for medical reasons: Yes Substance Use Type: Marijuana Advance Directives: No Advance Directives Information Provided: Yes Patient : No (january 03, miscarriage february 14) Physical Exam ED Vital Signs: Vital Signs - 24 hr 03/25/25 13:36 03/25/25 17:32 Temperature 98.1 F 98.1 F Pulse Rate 97 97 Respiratory Rate 18 18 Blood Pressure 124/65 124/65 Pulse Oximetry 99 99 Oxygen Delivery Method Room Air Room Air BMI result Body Mass Index 34.6 Appearance: Alert. Oriented X3. No acute distress. Eyes: Pupils equal, round and reactive to light. ENT: Pharynx normal. Neck: Normal inspection. Neck supple. CVS: Normal heart rate and rhythm. Pulses normal. Respiratory: No respiratory distress. Breath sounds normal. Abdomen: Soft and mild lower abdominal pain no rebound, speculum exam - os closed, no clots, one scopette of blood Skin: Skin warm and dry. Normal skin color. Normal skin turgor. Extremities: No lower extremity edema. No calf ttp Neuro: Oriented X 3. No motor deficit. No sensory deficit. CN2-12 intact Course Course Course Narrative: This is a rapid medical exam performed by Yovanny Mckeon NP: Additional HPI, ROS, PE not included below will be deferred to primary provider. Patient is a 20y/o F with pmhx irregular menses, anxiety and depression, insomnia, cannabis use presenting with complaint of lower abd cramping, vaginal bleeding. Also reports sweats/chills. States the other day she went through a 38 pack of adult diapers in one day. Reports miscarriage 2 mos ago. Plan: labs, UA, u/s 03/27/2025 [id number] Miriam Sena PA-C ---> Patient is positive for BV. Attempted to call her but her number is not in service. Flagyl sent in. Certified letter generated. Medications Administered Discontinued Medications Generic Name Dose Route Start Last Admin Trade Name [place] PRN Reason Stop Dose Admin Lactated Ringer's 1,000 mls @ 999 mls/hr 03/25/25 17:18 03/25/25 17:46 Lr IV 03/25/25 18:18 999 mls/hr .Q1H1M ONE Administration Ketorolac Tromethamine 15 mg 03/25/25 17:18 03/25/25 17:46 Ketorolac Tromethamine 15 Mg/Ml Vial IVPUSH 03/25/25 17:19 15 mg ONCE ONE Administration Medical Decision Making Medical Decision Making [facility] Narrative: 20 yo female who had miscarriage around 10 weeks who notes she bled back in January she never had repeat CBC after leaving here. She has been tired and weak at times. Over the past week return of cramping and large clot she was going through 4 adult briefs a day. She admits it has slowed down. She states she is tired and weak at times. She takes no medications. She has not been able to get into her OBGYN at [place]. Differential Diagnosis Differential Diagnoses: The differential diagnosis associated with the presentation includes anemia, fibroid, doubt retained POC Admission/Observation Consideration of admission/observation: Escalation of care including admission/observation considered VS stable, EKG stable, H/H stable no bleeding here I do not feel she needs emergent work up or transfer there is no retained POC will start on Fe and ibuprofen have her call OB Friday Lab Data [facility] Lab Attestation statement: I reviewed the patient's lab results. 03/25/25 17:20 03/25/25 13:59 Labs: Lab Results 03/25/25 03/25/25 Range/Units 13:59 17:20 WBC 9.0 9.5 (4.8-10.8) X10*3/uL RBC 3.40 L D 3.31 L (4.20-5.50) X10*6/uL Hgb 8.8 L D 8.6 L (12.0-16.0) g/dl Hct 27.5 L D 26.8 L (37.0-47.0) % MCV 80.9 81.0 (80.0-98.0) fL MCH 25.9 L 26.0 L (27.0-33.0) pg MCHC 32.0 32.1 (31.0-35.0) g/dl RDW 13.4 13.4 (11.0-16.0) % Plt Count 450 H 429 H (160-400) X10*3/uL MPV 10.1 10.1 (9.4-12.3) fL Immature Gran % (Auto) 0.3 (0.0-0.4) % Neut % (Auto) 70.5 (45-73) % Lymph % (Auto) 23.6 (20-40) % Vernon % (Auto) 4.6 (2-11) % Eos % (Auto) 0.8 (0-4) % Baso % (Auto) 0.2 (0-2) % Lymph # (Auto) 2.1 (1.2-4.9) X10*3/uL Vernon # (Auto) 0.4 (0.1-1.2) X10*3/uL Eos # (Auto) 0.1 (0.0-0.4) X10*3/uL Baso # (Auto) 0.0 (0.0-0.2) X10*3/uL Abs Immat Gran (auto) 0.03 (0.00-0.03) X10*3/uL Absolute Neuts (auto) 6.3 (2.0-8.3) x10*3/uL Absolute Nucleated RBC 0.000 0.000 (0.0-0.012) X10*3/uL Nucleated RBC % (auto) 0.0 0.0 (0.0-0.2) /100WBC Sodium 141 (135-145) mmol/L Potassium 3.7 (3.3-5.1) mmol/L Chloride 112 H (96-108) mmol/L Carbon Dioxide 22 (22-29) mmol/L Anion Gap 11 L (12-20) BUN 8 L (9-16) mg/dL Creatinine 0.60 (0.5-1.4) mg/dL Estim Creat Clear Calc 163.9 Estimated GFR > 60 Random Glucose 98 (60-115) mg/dL Calcium 8.6 D (8.4-10.2) mg/dL Total Bilirubin 0.2 (0.0-1.0) mg/dL AST 13 (5-31) U/L ALT 8 (0-31) U/L Alkaline Phosphatase 76 (39-117) U/L Total Protein 6.6 (6.5-8.0) g/dL Albumin 3.9 (3.5-5.0) g/dL Beta HCG, Quant 4 mIU/mL Chlam trachomat DNA PCR NOT DETECTED (Not Detect.) N.gonorrhoeae DNA (PCR) NOT DETECTED (Not Detect.) T. vaginalis (PCR) NOT DETECTED (Not Detect) Bact vaginosis (PCR) POSITIVE A (Negative) C. krusei/glabrata (PCR) NOT DETECTED (Not Detect) Maria Ines group (PCR) NOT DETECTED (Not Detect) Independent Interpretation I performed an independent interpretation of an: EKG and Ultrasound (fibroid, no thickness, no retained POC) Interpretation: Rate: 75 Rhythm: NSR Bushnell: normal Normal P waves. Normal ASHLEY. Normal QRS complex. ST T wave : normal no JAXON qTC: 399 prior studies: no acute ischemia The study has been interpreted contemporaneously by me. . Radiology Impression Discussion of test interpretation with radiology: I have reviewed the radiologist's reading. External Record Review External record reviewed: Outpatient record Prescription Management I considered prescription management with: Pain Medication and Other Discharge Plan Discharge Clinical Impression: Vaginal bleeding, Anemia Patient Disposition: Home, Self-Care Instructions: Abnormal (Dysfunctional) Uterine Bleeding (ED), Anemia (ED) Additional Instructions: you are anemic but your values were stable on repeat exam your ultrasound shows no thickened stripe but no retained products of conceptions take motrin as needed for pain you need to call your OBGYN and follow up Friday morning please avoid any intercourse until your symptoms resolve we did send off a panel of labs that are pending which include chlamydia rest and stay hydrated Prescriptions: New ferrous sulfate 325 mg (65 mg iron) tablet 325 mg PO DAILY Qty: 30 0RF ibuprofen 600 mg tablet 600 mg PO Q6H PRN (Reason: pain) Qty: 30 0RF ondansetron 4 mg tablet,disintegrating 4 mg PO Q8H PRN (Reason: nausea and vomiting) Qty: 20 0RF No Action ketorolac 10 mg tablet 10 mg PO Q6H PRN (Reason: pain) Qty: 20 0RF Rx Instructions: maximum total duration of 5 days from all oral, intranasal, or parenteral formulations. The patient received an intramuscular dose of Toradol here in the emergency room. methocarbamol 750 mg tablet 1,500 mg PO BEDTIME PRN (Reason: pain, moderate) Qty: 7 0RF Stand Alone Forms: Work/School Release Interventions: ED Discharge Assessment Last Done: 03/25/25 18:35 Discharge Date/Time: 03/25/25 18:36 Print Language: Divehi
[2025-03-25 14:12] LABS: MANUAL DIFF FLAG NO
[2025-03-25 14:14] LABS: Hematocrit 27.5 % (37.0-47.0); Hemoglobin 8.8 g/dl (12.0-16.0); Imm Gran Abs Auto 0.03 X10*3/uL (0.00-0.03); Imm Gran Pct Auto 0.3 % (0.0-0.4); Lymphocytes Absolute Auto 2.1 X10*3/uL (1.2-4.9); Mean Corpuscular HGB Conc 32.0 g/dl (31.0-35.0); Mean Corpuscular Hemoglobin 25.9 pg (27.0-33.0); Mean Corpuscular Volume 80.9 fL (80.0-98.0); NRBC Abs Auto 0.000 X10*3/uL (0.0-0.012); NRBC Pct Auto 0.0 /100WBC (0.0-0.2); Platelet Count 450 X10*3/uL (160-400); Red Blood Count 3.40 X10*6/uL (4.20-5.50); White Blood Count 9.0 X10*3/uL (4.8-10.8)
--- OUTSIDE RECORDS SUMMARY | 2025-03-25 14:20 | XMS_ITS | Clinical Summary ---
Author Organization [facility] Address [address] [place] [address] Care Team Providers Care Green Chain Worker Name Role Phone Jasmin Contreras MISSILE MECHANIC Primary Care Provider [phone] Source Comments Please note that some or all of the patient's information could have additional privacy protections. State laws allow health care providers to render certain types of treatment to minors without parental consent. Please do not assume that this information can be shared solely by obtaining just the consent of the patient's parent/guardian. Please determine if all or part of the patient's care was rendered without parent/guardian involvement. And, if so, obtain the minor's consent prior to disclosure.[facility] Allergies No known active allergies Medications FLUoxetine (PROZAC) 20 MG capsule Take 20 mg by mouth daily Active Active Problems Problem Noted Date Diagnosed Date Other headache syndrome 09/04/2022 Pituitary microadenoma 09/04/2022 Social History Tobacco Use Types Packs/Day Years Used Date Smoking Tobacco: Never Tobacco Cessation:Counseling Given: Not Answered Other Needs Answer Date Recorded Anything else about your child you'd like help w ith? Not on file 04/04/2023 Share good news about positive changes: Not on f ile 04/04/2023 Comments Unknown Sex and Gender Information Value Date Recorded Sex Assigned at Not on file Legal Sex Female 3:34 PM EST Gender Identity Not on file Sexual Orientation Not on file Last Filed Vital Signs Vital Sign Reading Time Taken Comments Blood Pressure - - Pulse - - Temperature 36.2 C (97.1 F) 09/04/2022 2:44 PM EST Respiratory Rate - - Oxygen Saturation - - Inhaled Oxygen Concentration - - Weight 97.6 kg (215 lb 2.7 oz) 09/04/2022 2:44 P M EST Height - - Body Mass Index - - Plan of Treatment Health Maintenance Due Date Last Done Comments DTaP/TDAP/TD VACCINES (1 - Tdap) 02/29/2012 ADOLESCENT HIV SCREENING 2018 COVID-19 Vaccine (2023-2 5 season) 2024 INFLUENZA (Season Ended) 2025 NIRSEVIMAB VACCINES UNDER 8 MONTHS Aged Out No longer eligible based on patient's age to complete this topic [place] [address] [place] [address] [employer] Care Teams Green Chain Worker Relationship Specialty Start Date End Date Jasmin Contreras FNP [address] [place] [id number] PCP - General Nurse Practitioner 08/12/22
--- OUTSIDE RECORDS SUMMARY | 2025-03-25 14:20 | XMS_ITS | Encounter Summary ---
Author Organization [facility] [place] [address] Care Team Providers Care Flyer Builder Name Role Phone Cheikh Choudhary MD Primary Care Pr ovider Reason for Visit * Reason Onset Date Comments misscarriage 03/23/2025 Encounter Details Date Type Department Care Team (Late st Contact Info) Description 03/23/2025 Telephone Obstetrics and Gynecology - [address] [phone] Sonia Carranza CN [address] [place] [address] [id number] Social History Tobacco Use Types Packs/Day Years Used Date Smoking Tobacco: Never Smokeless Tobacco: Never Alcohol Use Standard Drinks/Week Comments No 0 (1 standard drink = 0.6 oz pur e alcohol) Comments No Sex and Gender Information Value Date Recorded Sex Assigned at Not on file Legal Sex Female 2:16 PM EST Gender Identity Not on file Sexual Orientation Not on file documented as of this encounter Progress Notes * Jessie Pena RN - 03/23/2025 3:35 PM EDT Patient reports she has been bleeding since her miscarriage-she reports she has been passing clots and bleeding heavily. Advised pt to go to the hospital as she is bleeding to heavily and is feeling symptomatic. Pt verbalized understanding. * Ros Rosenthal - 03/23/2025 3:27 PM EDT Pt calling concerned, states had an miscarriage back in January 2025 and has not stopped bleeding , states at times she is clotting . Pls advise documented in this encounter Plan of Treatment Not on file documented as of this encounter Visit Diagnoses Not on filedocumented in this encounter Care Teams Flyer Builder Relationship Specialty Start Date End Date Cheikh Choudhary MD [address] [place] [phone] PCP - General 01/07/23 documented as of this encounter
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
[2025-03-25 14:33] LABS: Alanine Aminotransferase 8 U/L (0-31); Albumin Level 3.9 g/dL (3.5-5.0); Alkaline Phosphatase 76 U/L (39-117); Anion Gap 11 (12-20); Aspartate Amino Transferase 13 U/L (5-31); Blood Urea Nitrogen 8 mg/dL (9-16); Calcium 8.6 mg/dL (8.4-10.2); Carbon Dioxide 22 mmol/L (22-29); Chloride 112 mmol/L (96-108); Creatinine Clr Calc Pharmacy 163.9; Estimated Glomerular Filt Rate > 60; Potassium 3.7 mmol/L (3.3-5.1); Sodium 141 mmol/L (135-145); Total Protein 6.6 g/dL (6.5-8.0)
--- NOTE | 2025-03-25 17:21 | ECG_ITS ---
Test Reason : WEAKNESS Blood Pressure : */* mmHG Vent. Rate : 75 BPM Atrial Rate : 75 BPM P-R Int : 168 ms QRS Dur : 82 ms QT Int : 358 ms P-R-T Axes : 44 57 33 degrees QTcB Int : 399 ms Normal sinus rhythm Normal ECG No previous ECGs available Referred By: Nasrin Camargo Electronically Signed By: Issa Aguilar
[2025-03-25 17:32] VITALS: BP 124/65; PULSE 97; RESP 18; TEMP 36.7; O2SAT 99
[2025-03-25] MEDS: Lactated Ringers 1,000 ML 999 ML IV (17:46)
[2025-03-25 17:53] LABS: Hematocrit 26.8 % (37.0-47.0); Hemoglobin 8.6 g/dl (12.0-16.0); Mean Corpuscular HGB Conc 32.1 g/dl (31.0-35.0); Mean Corpuscular Hemoglobin 26.0 pg (27.0-33.0); Mean Corpuscular Volume 81.0 fL (80.0-98.0); NRBC Abs Auto 0.000 X10*3/uL (0.0-0.012); NRBC Pct Auto 0.0 /100WBC (0.0-0.2); Platelet Count 429 X10*3/uL (160-400); Red Blood Count 3.31 X10*6/uL (4.20-5.50); White Blood Count 9.5 X10*3/uL (4.8-10.8)
--- NOTE | 2025-03-25 18:32 | PC.NURSE ---
Pt's fluids finished. IV DC'd. Discharge instruction, verbal and written, given to pt and support people. All questions answered. Pt verbalized intent to follow up with OBGYN and take iron supplements.
[2025-03-25 18:35] VITALS: BP 124/65; PULSE 97; RESP 18; TEMP 36.7; O2SAT 99
[2025-03-25 20:40] LABS: Bacterial Vaginosis PCR POSITIVE (Negative); Candida Group PCR NOT DETECTED (Not Detect); Candida glab krusei PCR NOT DETECTED (Not Detect); Trichomonas vaginalis PCR NOT DETECTED (Not Detect)
[2025-03-25 21:12] LABS: CT PCR NOT DETECTED (Not Detect.); NG PCR NOT DETECTED (Not Detect.)
== END 2025-03-25 18:36 | disposition home or self-care (01) ==
PROVIDERS: Registered Nurse Emergency; Emergency Provider Emergency Medicine
DX: N93.9 Abnormal uterine and vaginal bleeding, unspecified (principal); D64.9 Anemia, unspecified
CPT/HCPCS: 36415; 76830; 76856; 80053; 81515; 84702; 85025; 85027; 87491; 87591; 93005; 96374; 99284; 99285; J1885; J7120

== ENCOUNTER → 2025-03-25 13:39 | Outpatient (BNV) | payer OTHER, SELFPAY | PROVIDERS: Visit Provider Radiology Diagnostic Radiology | DX: D25.2 Subserosal leiomyoma of uterus (principal) | CPT/HCPCS: 76830; 76856 ==

== ENCOUNTER → 2025-03-25 17:21 | Outpatient (BNV) | payer OTHER, SELFPAY | PROVIDERS: Emergency Provider Emergency Medicine; Visit Provider Internal Medicine Cardiovascular Disease | DX: R53.1 Weakness (principal) | CPT/HCPCS: 93010 ==